=== PATIENT | female | born 1975 | race Caucasian/White ===

== ENCOUNTER 2022-05-19 11:46 | Emergency (ER) | payer OTHER, SELFPAY ==
--- NOTE | ~2022-05-19 | CT_ITS ---
EXAMINATION: CT soft tissue neck w con DATE: 05/19/2022 14:46 INDICATION: Left neck swelling. TECHNIQUE: Computed tomography (CT) of the neck was performed with 75 mL Omnipaque-350 intravenous co ntrast. Automated exposure control and iterative reconstruction technique were employed. The dose-lucio gth product was 498.32 mGy-cm. COMPARISON: None FINDINGS: There is near complete opacification of left maxillary sinus. There is mild mucosal thicken ing in right maxillary sinus. The cervical carotid arteries are normal. There is a 3 mm nodule in lef t thyroid lobe, likely not clinically significant. There are no pathologically enlarged lymph nodes. There is moderate spondylosis at C5-C6. IMPRESSION: 1. No abnormal mass or lymphadenopathy. Reviewed, dictated and finalized at location A.
[2022-05-19 12:10] VITALS: BP 160/90; PULSE 64; RESP 16; TEMP 36.8; O2SAT 98
[2022-05-19] MEDS: MORPHINE SULFATE (*CRX) 2 MG/ML INJ IV PUSH (13:28)
[2022-05-19 13:40] LABS: Basophils Absolute Auto 0.1 K/mm3 (0.0-0.1); Basophils Percent Auto 0.6 % (0.2-1.2); Eosinophils Absolute Auto 0.4 K/mm3 (0-0.3); Eosinophils Percent Auto 3.1 % (0-4.4); Hematocrit 39.6 % (37.0-47.0); Hemoglobin 13.5 g/dL (12.0-15.0); Immature Granulocyte Absolute 0.04 K/mm3 (0.00-0.031); Immature Granulocyte Percent A 0.3 % (0-0.5); Lymphocytes Absolute Auto 3.75 K/mm3 (0.9-3.2); Lymphocytes Percent Auto 32.4 % (18.3-44.2); Mean Corpuscular HGB Conc 34.1 g/dl (32-36); Mean Corpuscular Hemoglobin 31.2 pg (26-34); Mean Corpuscular Volume 91.5 fl (80-100); Monocytes Absolute Auto 0.7 K/mm3 (0.1-0.6); Monocytes Percent Auto 5.9 % (2.6-8.5); Neutrophils Absolute Auto 6.7 K/mm3 (1.3-6.7); Neutrophils Percent Auto 57.7 % (45.5-73.1); Platelet Count Result 293 k/mm3 (150-375); Red Blood Count 4.33 M/mm3 (4.2-5.4); Red Cell Distribution Width 13.2 % (11.5-14.5); White Blood Count 11.6 K/mm3 (4.5-10.0)
[2022-05-19 13:59] LABS: INR 0.9; Partial Thromboplastin Time 29.5 SECONDS (22.3-36.8); Prothrombin Time 12.1 Seconds (11.1-14.7)
[2022-05-19 14:12] LABS: Alanine Aminotransferase 24 U/L (6-35); Albumin Level 3.8 g/dL (3.5-5.1); Alkaline Phosphatase 70 U/L (38-126); Anion Gap 2 mmol/L (8-16); Aspartate Amino Transferase 28 U/L (14-36); Bilirubin,Total 0.5 mg/dL (0.2-1.3); Blood Urea Nitrogen 13 mg/dL (7-17); Calcium 8.8 mg/dL (8.4-10.2); Carbon Dioxide 30 mmol/L (22-30); Chloride 104 mmol/L (98-107); Estimated CRCL calculation 76 ml/min; Estimated Glomerular Filt Rate > 60; Glucose 103 mg/dL (65-110); Potassium 3.8 mmol/L (3.4-5.0); Sodium 136 mmol/L (137-145)
[2022-05-19 15:51] VITALS: BP 148/96; PULSE 64; RESP 17; TEMP 36.7; O2SAT 100
--- NOTE | 2022-05-19 16:14 | ED.GENADULT ---
HPI - General Adult General Chief complaint: Extremity Problem,Nontraumatic Stated complaint: left shoulder pain/swelling Time Seen by Provider: 05/19/22 12:53 History of Present Illness HPI narrative: Patient is a 46-year-old female who presents to the ER with some left neck/shoulder pain. Patient was leaning forward when she had sudden onset pain. She has swelling to the area. No obvious bruising. No difficulty with breathing or swallowing. Pain radiates into the back and neck and kind of towards the shoulder/axilla. Pain is worsened by turning her head and moving the arm. Related Data Allergies Allergy/AdvReac Type Severity Reaction Status Date / Time No Known Allergies Allergy Verified 05/19/22 13:29 Review of Systems Review of Systems: All systems reviewed & are unremarkable except as noted in HPI and below Constitutional: Constitutional: Denies chills, Denies fatigue and Denies fever(s) Cardiovascular: Cardiovascular: Denies chest pain and Denies radiating jaw, neck or arm pain Respiratory: Respiratory: Denies cough and Denies dyspnea Gastrointestinal: Gastrointestinal: Denies abdominal pain, Denies nausea and Denies vomiting Musculoskeletal: Musculoskeletal: Denies arthralgias and Denies joint swelling Comments: Neck pain PMFSH Past Medical History Medical History (Updated 05/19/22 @ 19:15 by Sam Gonzalez MD) Depression Diabetes Hypertension Surgical History Surgical History (Updated 05/19/22 @ 19:15 by Sam Gonzalez MD) No pertinent past surgical history Exam Narrative: GENERAL: Well-appearing, well-nourished, and in no acute distress. HEAD: Normocephalic, atraumatic. ENT: Mucous membranes moist. NECK: Supple. FROM. Swelling/tenderness left neck region that seems to be more related to the sternocleidomastoid/trapezius musculature. No carotid bruit. No difficulty tolerating oral secretions. CHEST: Clear to auscultation. No respiratory distress. No stridor. HEART: Regular rate and rhythm. Normal peripheral pulses that are equal in bilateral radial arteries. EXTREMITIES: Normal range of motion. No edema. SKIN: Warm, dry, no rash. NEURO: No focal deficits. Alert and oriented x3. PSYCH: Normal mood and affect. Course Course Emergency Course: Imaging without acute process to explain swelling. It is felt patient likely has a muscle strain with inflammation. Recommend anti-inflammatories muscle relaxers. Patient verbalized understanding. Patient given strict return precautions. Vital Signs Vital signs: Vital Signs Temperature 98.2 F 05/19/22 12:10 Pulse Rate 64 05/19/22 12:10 Respiratory Rate 16 05/19/22 12:10 Blood Pressure 160/90 H 05/19/22 12:10 Pulse Oximetry 98 05/19/22 12:10 Oxygen Delivery Room Air 05/19/22 12:10 Temperature 98.1 F 05/19/22 15:51 Pulse Rate 64 05/19/22 15:51 Respiratory Rate 17 05/19/22 15:51 Blood Pressure 148/96 H 05/19/22 15:51 Pulse Oximetry 100 05/19/22 15:51 Oxygen Delivery Room Air 05/19/22 12:10 Medical Decision Making Vital Signs Vital Signs: Vital Signs Temperature 98.2 F 05/19/22 12:10 Pulse Rate 64 05/19/22 12:10 Respiratory Rate 16 05/19/22 12:10 Blood Pressure 160/90 H 05/19/22 12:10 Pulse Oximetry 98 05/19/22 12:10 Oxygen Delivery Room Air 05/19/22 12:10 Temperature 98.1 F 05/19/22 15:51 Pulse Rate 64 05/19/22 15:51 Respiratory Rate 17 05/19/22 15:51 Blood Pressure 148/96 H 05/19/22 15:51 Pulse Oximetry 100 05/19/22 15:51 Oxygen Delivery Room Air 05/19/22 12:10 Lab Data 05/19/22 13:32 05/19/22 13:53 Labs: Lab Results 05/19/22 05/19/22 05/19/22 Range/Units 13:32 13:32 13:53 WBC 11.6 H (4.5-10.0) K/mm3 RBC 4.33 (4.2-5.4) M/mm3 Hgb 13.5 (12.0-15.0) g/dL Hct 39.6 (37.0-47.0) % MCV 91.5 (80-100) fl MCH 31.2 (26-34) pg MCHC 34.1 (32-36) g/dl RDW 13.2 (11.5-1
== END 2022-05-19 16:45 | disposition home or self-care (01) ==
PROVIDERS: Emergency Provider Emergency Medicine
DX: S16.1XXA Strain of muscle, fascia and tendon at neck level, initial encounter (principal); E11.9 Type 2 diabetes mellitus without complications; I10 Essential (primary) hypertension; X50.9XXA Other and unspecified overexertion or strenuous movements or postures, initial encounter
CPT/HCPCS: 36415; 70491; 80053; 85025; 85610; 85730; 96374; 99284; J2270; Q9967